=== PATIENT | female | born 1960 | race Caucasian/White ===

== ENCOUNTER 2017-07-20 13:31 | Emergency (ER) | payer BC | END 2017-07-20 15:04 | disposition home or self-care (01) | LOC: D.ER 13:31 | DX: S16.1XXA Strain of muscle, fascia and tendon at neck level, initial encounter (principal); X58.XXXA Exposure to other specified factors, initial encounter; Y93.89 Activity, other specified; Y92.019 Unspecified place in single-family (private) house as the place of occurrence of the external cause; M25.512 Pain in left shoulder; E03.9 Hypothyroidism, unspecified ==

== ENCOUNTER 2018-10-15 08:34 | Day surgery (SDC) | payer BC ==
[~2018-10-15 08:34] MED LIST: CENTRUM SILVER1 EAC3 PO; ESTRACE 0.5 MG0.5 MG PO; LEVO-T137 MCG PO; PRAVASTATIN SOD10 MG PO
[2018-10-15 10:09] LABS: HEMATOCRIT 39.3 % (36.0-48.0); HEMOGLOBIN 13.8 g/dL (12-16); MCH 30.1 pg (26.0-34.0); MCHC 35.1 g/dL (31.0-37.0); MCV 85.8 fL (80.0-100.0); MEAN PLATELET VOLUME 12.1 fL (7.4-10.4); RBC 4.58 10x6/uL (4.00-5.40); RDW 13.3 % (11.5-14.5); WBC 8.9 10x3/uL (4.8-10.8)
[2018-10-15 10:25] VITALS: BP 131/86; BMI 28.3
--- NOTE | 2018-10-15 16:13 | NUR ---
1424 IV REMOVED WITH CATHALON INTACT. ALL DISCHARGE INSTRUCTIONS GIVEN. VOICES UNDERSTANDING. TAKEN OUT VIA WC TO CAR WITH SISTER. ADVISED TO CALL OR COME BACK IF ANY PROBLEMS.
--- NOTE | 2018-10-22 17:02 | OP ---
PATIENT NAME: GARY HUITRON MEDICAL RECORD: [id number] :56 LOCATION:D.OPS ADMISSION DATE: SURGEON: MARLON FLORES DATE OF OPERATION: 10/15/2018 SURGEON: Marlon Flores DPM PREOPERATIVE DIAGNOSES: 1. Hallux rigidus, left foot. 2. Neuroma, second intermetatarsal space, left foot. POSTOPERATIVE DIAGNOSES: 1. Hallux rigidus, left foot. 2. Neuroma, second intermetatarsal space, left foot. PROCEDURES: 1. Cheilectomy, left first metatarsophalangeal joint. 2. Injection of Decadron, second intermetatarsal space, left foot. ANESTHESIA: Local with monitored anesthesia care. HEMOSTASIS: Pneumatic ankle tourniquet inflated to 250 mmHg. ESTIMATED BLOOD LOSS: Minimal. MATERIALS: Vicryl 3-0 and 4-0 nylon. INJECTABLES: A 12 cc of 0.5% bupivacaine plain and 4 mg of Decadron. The patient has long-standing history of pain associated with both arthritic first metatarsophalangeal joint as well as neuroma in the second intermetatarsal space. She has not improved with conservative modalities regarding the first metatarsophalangeal joint. She is here today for surgical correction. We discussed the risks and benefits of the procedure. Complications were reviewed. All questions were answered. She was appropriately consented for the above-mentioned procedures. DESCRIPTION OF PROCEDURE: The patient was brought in the operating room and placed on the operating table in supine position. A time-out was called with Dr. Flores, who identified the patient, the surgical site, and the surgery to be performed. Once appropriate anesthesia was obtained, the foot was prepped and draped in the usual aseptic manner. The pneumatic ankle tourniquet was inflated to 250 mmHg on the well-padded left ankle. PROCEDURE #1: Cheilectomy, left foot. Attention was directed to the dorsal aspect of the first metatarsophalangeal joint, where a 6-cm linear incision was made just medial to the extensor hallucis longus tendon. This incision was carried deep to soft tissue with care being taken to retract all vital neurovascular structures. All bleeders were cauterized along the way. The periosteum was then reflected from the head of the first metatarsal and the base of the proximal phalanx, thus revealing the first metatarsophalangeal joint. The top third of the head of the first OPERATIVE REPORT [id number] GARY HUITRON metatarsal was noted to be eroded. Copious osteophytes were noted both on dorsal, medial, and lateral aspect of the first metatarsal head as well as the base of the proximal phalanx. Utilizing a sagittal saw and rongeur, all hypertrophied bone was removed. The diseased aspect of the first metatarsal head was also resected. The surgical site was then placed through range of motion and increased range of motion was noted. All hypertrophied bone was removed. The surgical site was then irrigated with copious amounts of normal sterile saline via bulb syringe. The surgical site was then reinvestigated for any remaining bony prominences and none were noted. The periosteum was reapproximated and coapted using 3-0 Vicryl. The subcutaneous was reapproximated and coapted using 3-0 Vicryl. The skin was reapproximated and coapted using 4-0 nylon. PROCEDURE #2: Injection, second intermetatarsal space, left foot. Attention was directed to the second intermetatarsal space of the left foot, where 4 mg of dexamethasone sodium phosphate was infiltrated over the second intermetatarsal nerve. A dressing consisting of Xeroform, 4 x 4's, Kerlix, and Pepito bandage was applied to the left foot. The pneumatic ankle tourniquet was deflated and cap refill time was immediate to all digits of the left foot. The patient tolerated the procedure and the anesthesia well. She left the operating room with vital signs stable and capillary refill time intact. The patient was discharged home with instructions to ice and elevate the left foot. She was dispensed a postop shoe to help offload the foot. She has my cell phone number for any afterhours difficulties. She was provided with a prescription for [place] 5/325, Phenergan 25 mg, and ibuprofen 800 mg. There were no complications with this procedure. TRANSINT:[id number] Voice Confirmation ID: [id number] DOCUMENT ID: [id number] MARLON FLORES at 1702 CC: [id number] DICTATION DATE: 10/15/18 1303 NURSING HOME SOCIAL WORKER: 10/15/18 1537 DEP SDC 10/15/18 [facility] [address] [place] [address]
== END 2018-10-15 14:24 | disposition home or self-care (01) ==
LOC: D.OPS 08:34 → D.PAN 11:30 → D.OPS 11:30
PROVIDERS: Anesthesiology; ATTEND Podiatrist
DX: M20.22 Hallux rigidus, left foot (principal); G57.82 Other specified mononeuropathies of left lower limb; Z01.812 Encounter for preprocedural laboratory examination

== ENCOUNTER 2020-11-05 11:48 | Observation (INO) | payer BC ==
[~2020-11-05] VITALS: Ht 152.4 cm; Wt 70.3 kg
[2020-11-05 12:14] LABS: BASOPHILS 0.6 % (0-2); EOSINOPHILS 1.5 % (0-7); HEMATOCRIT 41.1 % (36.0-48.0); HEMOGLOBIN 13.4 g/dL (12-16); LYMPHOCYTES 37.5 % (15-50); MCH 29.1 pg (26.0-34.0); MCHC 32.5 g/dL (31.0-37.0); MCV 89.5 fL (80.0-100.0); MONOCYTES 7.7 % (2-11); NEUTROPHILS 52.7 % (40-80); RBC 4.59 10x6/uL (4.00-5.40); RDW 14.1 % (11.5-14.5); WBC 12.2 10x3/uL (4.8-10.8)
[2020-11-05 12:15] LABS: PLATELET COUNT 357 10x3/uL (130-400)
[2020-11-05 12:20] LABS: CALC OSMOLALITY 288 mosm/kg (275-300); CALCIUM 9.1 mg/dL (8.5-10.1); CARBON DIOXIDE 30.3 mmol/L (21.0-32.0); CHLORIDE - SERUM 107 mmol/L (98-107); CREATININE - SERUM 0.8 mg/dL (0.6-1.3); GLUCOSE 92 mg/dL (74-106); POTASSIUM - SERUM 3.2 mmol/L (3.5-5.1); SODIUM 144 mmol/L (136-145); UREA NITROGEN 18 mg/dL (7-18); eGFR NON AFRICAN AMERICAN 77 mL/min (90-120)
[2020-11-05 12:22] LABS: APTT 24.4 SECONDS (22.8-39.4); INR 1.08 (0.85-1.17)
[2020-11-05 12:47] LABS: ALKALINE PHOSPHATASE 86 U/L (30-120); ALT (SGPT) 40 U/L (10-68); CKMB 6.9 U/L (0.0-3.6); CREATINE KINASE 139 UL (21-215); MAGNESIUM - SERUM 2.3 mg/dL (1.8-2.4); PROTEIN - SERUM 7.8 g/dL (6.4-8.2)
[2020-11-05 12:48] LABS: TROPONIN-I 0.337 ng/mL (0.000-0.060)
[2020-11-05 13:54] VITALS: BP 141/77
[2020-11-05 14:51] VITALS: BP 128/78
--- NOTE | 2020-11-05 15:51 | NUR ---
PATIENT AMBULATED TO BATHROOM
[2020-11-05 17:03] VITALS: BP 146/74
[2020-11-05 19:03] LABS: CKMB 4.3 U/L (0.0-3.6); CREATINE KINASE 98 UL (21-215)
[2020-11-05 19:06] LABS: TROPONIN-I 0.305 ng/mL (0.000-0.060)
[2020-11-05 19:24] VITALS: BP 142/75
[2020-11-06 00:28] VITALS: BP 134/70
[2020-11-06 01:33] LABS: CREATINE KINASE 72 UL (21-215)
[2020-11-06 01:34] LABS: TROPONIN-I 0.228 ng/mL (0.000-0.060)
[2020-11-06 05:49] VITALS: BP 144/63
[2020-11-06 06:11] LABS: BASOPHILS 0.4 % (0-2); EOSINOPHILS 0.8 % (0-7); HEMATOCRIT 34.8 % (36.0-48.0); HEMOGLOBIN 11.8 g/dL (12-16); LYMPHOCYTES 21.4 % (15-50); MCH 29.6 pg (26.0-34.0); MCHC 33.8 g/dL (31.0-37.0); MEAN PLATELET VOLUME 9.1 fL (7.4-10.4); MONOCYTES 6.7 % (2-11); NEUTROPHILS 70.7 % (40-80); PLATELET COUNT 287 10x3/uL (130-400); RBC 3.98 10x6/uL (4.00-5.40); RDW 13.9 % (11.5-14.5); WBC 9.2 10x3/uL (4.8-10.8)
[2020-11-06 06:28] LABS: CALC OSMOLALITY 279 mosm/kg (275-300); CALCIUM 8.3 mg/dL (8.5-10.1); CARBON DIOXIDE 26.3 mmol/L (21.0-32.0); CHLORIDE - SERUM 106 mmol/L (98-107); CHOL - HDL RATIO 2.6 ratio (2.3-4.1); CHOLESTEROL, TOTAL 179 mg/dL (0-200); CKMB 2.6 U/L (0.0-3.6); CREATINE KINASE 71 UL (21-215); CREATININE - SERUM 0.6 mg/dL (0.6-1.3); GLUCOSE 94 mg/dL (74-106); HDL CHOLESTEROL 68 mg/dL (32-96); LDL CHOLESTEROL 96 mg/dL (0-100); LDL-HDL RATIO 1.4 ratio (1.5-3.5); SODIUM 139 mmol/L (136-145); TRIGLYCERIDE 79 mg/dL (30-200); UREA NITROGEN 19 mg/dL (7-18); eGFR NON AFRICAN AMERICAN > 90 mL/min (90-120)
[2020-11-06 06:29] LABS: TROPONIN-I 0.189 ng/mL (0.000-0.060)
[2020-11-06 06:40] LABS: MCV 87.4 fL (80.0-100.0)
[2020-11-06 08:00] VITALS: BP 137/70
--- NOTE | 2020-11-06 10:16 | HP ---
PATIENT: GARY HUITRON MEDICAL RECORD: [id number] ACCOUNT: [id number] LOCATION:[facility].2108 : 56 ADMISSION DATE: 11/05/20 PCP: DRU TATUM MD HISTORY AND PHYSICAL EXAMINATION DATE OF ADMISSION: 11/05/2020. CHIEF COMPLAINT: Chest pain. HISTORY OF PRESENT ILLNESS: This is a 60-year-old white female with history of thyroid issues and hyperlipidemia, who started having some chest pain last night. She has a watch that will check her heart rate and she states it was over 150 beats for 3 hours last night and it went back down. Her chest pain is described as squeezing and it radiates up both sides of her neck. She had a little shortness of breath with this and continued today, so she thought she would come in and get it checked. She has no history of heart disease. In the ER, her blood work was unremarkable except her CK-MB was elevated and troponin was elevated. She is admitted and cardiology is consulted. PAST MEDICAL HISTORY: Hypothyroidism and hyperlipidemia. PAST SURGICAL HISTORY: Hysterectomy, but ovaries remain. She has had a cholecystectomy, tonsillectomy, and thyroidectomy. ALLERGIES: None known. HOME MEDICATIONS: Estradiol 0.5 mg once a day, pravastatin 20 mg once a day, levothyroxine 0.137 mcg once a day. She takes Flonase nasal spray daily and vitamin D3 at 10,000 units twice a week. HABITS: She is a former smoker. She drinks occasional alcohol beverage and denies any illicit drug use. SOCIAL HISTORY: She is , lives alone. 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 FAMILY HISTORY: Father at age 93. He had a heart attack at age 80. He had a history of hypertension. Mother at age 54 of liver cancer. The patient has 5 siblings, one sister with diabetes. Another sister with rheumatoid arthritis. One brother who is around her age, had an HI at age 50. REVIEW OF SYSTEMS: GENERAL: No major weight changes. HEENT: No particular sinus or allergy problems. RESPIRATORY: No known asthma or emphysema. CARDIAC: No history of heart trouble. GASTROINTESTINAL: No significant diarrhea, constipation, or heartburn. GENITOURINARY: No significant problems there. MUSCULOSKELETAL: No significant aches and pains. NEUROLOGIC: No migraines or seizures. PSYCHIATRIC: Denies depression or melancholia. PHYSICAL EXAMINATION: VITAL SIGNS: Temperature 97.0, pulse 59, respirations 16, blood pressure 128/78, O2 sat 94%. Generally, she is awake and alert. She does not complain HISTORY AND PHYSICAL [id number] GARY HUITRON of any pain or elevated heart rate at this time. SKIN: Warm and dry. HEENT: Grossly within normal limits. NECK: Supple. No JVD or bruit. HEART: Regular rate and rhythm. LUNGS: Clear. ABDOMEN: Soft, flat, nontender. EXTREMITIES: No edema. NEUROLOGIC: Unremarkable. LABORATORY DATA: CBC with a white count of 12,200; hemoglobin 13.4, hematocrit 41.1, platelets 157,000. Basic metabolic panel: Sodium 144, potassium 3.2, chloride 107, CO2 30.3, BUN 18, creatinine 0.8, glucose 92, calcium 9.1. Liver functions were all okay. INR 1.08, CK 139, CK-MB is elevated at 6.9. Troponin elevated at 0.337. Chest x-ray shows nothing acute. EKG showed no ST elevation. IMPRESSION: 1. Non-ST elevated myocardial infarction. 2. History of hypothyroidism. 3. History of hyperlipidemia. PLAN: Cardiology is consulted and will follow their recommendations. TRANSINT:[id number] Voice Confirmation ID: [id number] DOCUMENT ID: [id number] VAUGHN PITT MD at 1016 CC: [id number] DICTATION DATE: 11/05/202019 MEDIA RELATIONS MANAGER: 11/05/20 2323 ADM IN [place] [id number] [place] [address]
[2020-11-06 12:00] VITALS: BP 144/70
[2020-11-06 14:13] VITALS: Ht 152.4 cm; Wt 70.3 kg
[2020-11-06 16:00] VITALS: BP 150/70
--- NOTE | 2020-11-06 19:31 | NUR ---
RECIEVED SITTING UP IN BED WITH EYES OPEN AND TV 0N. ALERT AND ORIENTED X4. UP AD RJ. STATES " I DONT WANT THAT NITRO. IT MADE ME SICK AND THROW UP." DENIES ANY NEEDS AT THIS TIME.
[2020-11-06 21:55] VITALS: BP 154/81
[2020-11-07 02:21] VITALS: BP 165/78
[2020-11-07 06:06] VITALS: BP 130/65
--- NOTE | 2020-11-07 07:10 | NUR ---
Lying in bed, awake/alert/oriented, T/R self ad monica, cont of B/B with BRPs per self ad monica, denies pain/other discomfort at this time, call light/phone/water within reach, no s/s of acute distress observed.
[2020-11-07 09:00] VITALS: BP 136/68
[2020-11-07] MEDS ORDERED: NORVASC2.5 MG PO (09:02)
[2020-11-07] MEDS ORDERED: BAYER CHEWABLE81 MG PO (09:04)
--- NOTE | 2020-11-07 13:40 | NUR ---
Provided written/verbal discharge instructions/education to which pt voiced understanding, discontinued IV access/cardiac telemetry monitoring, waiting for pt ride to arrive, no s/s of acute distress observed.
--- NOTE | 2020-11-07 14:25 | NUR ---
DC'd home to self care in stable condition via w/c accompanied by hospital staff and family member, no s/s of acute distress observed.
== END 2020-11-07 14:25 | disposition home or self-care (01) ==
LOC: D.ER 11:48 → D.EDHOLD 14:20 → D.M2 14:20 → OBSVTIME 14:21 → D.M2 23:46
PROVIDERS: Family Medicine; ADMIT Family Medicine; ATTEND Family Medicine
DX: I21.4 Non-ST elevation (NSTEMI) myocardial infarction (principal); E87.6 Hypokalemia; I10 Essential (primary) hypertension; E03.9 Hypothyroidism, unspecified; E78.5 Hyperlipidemia, unspecified